=== PATIENT | female | born 1995 | race Caucasian/White ===

== ENCOUNTER 2016-08-18 13:00 | Emergency (ER) | payer OTHER ==
[2016-08-18 13:09] VITALS: BP 119/78; PULSE 76; RESP 17; O2SAT 98
--- NOTE | 2016-08-18 13:23 | EDPHY ---
H & P Stated Complaint: Fell and hit head last night. LOC. Vomiting Time Seen by Provider: 08/18/16 13:12 HPI/ROS: CHIEF COMPLAINT: Headache, vomiting following head injury last night HISTORY OF PRESENT ILLNESS: The patient presents to the ED complaining of headache and vomiting following a head injury last night. The patient was seen and reportedly at an emergency department in [place] where she was treated for alcohol intoxication. Patient reportedly did not have any imaging of her brain done last night. The patient reports throughout the day today she has had severe headache vomiting and severe pain in her frontal scalp. She was seen at an urgent care referred to the emergency department for further workup of possible closed head injury and concussion. The patient denies any associated neck pain, back pain, extremity pain, chest pain, difficulty breathing or abdominal pain. She is not on anticoagulants. Patient denies any recent infectious symptoms. She denies additional complaints. REVIEW OF SYSTEMS: A comprehensive 10 point review of systems is otherwise negative aside from elements mentioned in the history of present illness. Source: Patient Exam Limitations: No limitations - Personal History LMP (Females 10-55): 8-14 Days Ago Current Tetanus/Diphtheria Vaccine: Yes Current Tetanus Diphtheria and Acellular Pertussis (TDAP): Yes Tetanus Vaccine Date: WITHIN 10 YRS - Medical/Surgical History Hx Asthma: Yes Hx Chronic Respiratory Disease: No Hx Diabetes: No Hx Cardiac Disease: No Hx Renal Disease: No Hx Cirrhosis: No Hx Alcoholism: No Hx HIV/AIDS: No Hx Splenectomy or Spleen Trauma: No Other PMH: TONSILECTOMY , right ankle fx - Social History Smoking Status: Never smoked - Physical Exam Exam: General Appearance: Alert, no distress Head: Tenderness to palpation and soft tissue swelling noted in the left forehead, no palpable crepitus, no hematoma Eyes: Pupils equal, round, reactive ENT, Mouth: No hemotympanum, no oral trauma Neck: Nontender, trachea midline Respiratory: No chest wall tender, subcutaneous air, lungs clear bilaterally Cardiovascular: Regular rate and rhythm Abdomen: Abdomen is soft and nontender, pelvis stable Skin: No lacerations, No abrasion Back: No midline T/L/S pain Extremities: Nontender, full range of motion Neurological: A&Ox3, normal motor function, normal sensory exam, GCS 15 Constitutional: Initial Vital Signs Heart Rate 76 08/18/16 13:05 Respiratory Rate 17 08/18/16 13:05 Blood Pressure 119/78 08/18/16 13:05 O2 Sat (%) 98 08/18/16 13:05 O2 Delivery Mode Room Air Allergies/Adverse Reactions: No Known Allergies Allergy (Unverified 01/10/14 19:57) Home Medications: Medication Instructions Recorded Zoloft 100mg (RX) 01/10/14 Ondansetron Odt [Zofran Odt] 4 mg PO Q4PRN PRN #20 tab 08/18/16 Medical Decision Making - Diagnostics Imaging: CT head without contrast: Negative for intracranial hemorrhage, skull fracture or other acute finding. Images reviewed by myself and discussed with radiologist. ED Course/Re-evaluation: The patient presents the ED with symptoms of a severe concussion with headache, ongoing vomiting following a head injury last night. I detect no obvious focal neurologic deficits however given her history of trauma, ongoing vomiting and severe headache a noncontrast head CT scan was evaluated to exclude possible intracranial hemorrhage or skull fracture. CT scan results demonstrate no evidence of a intracranial hemorrhage or skull fracture. The patient is noted to have no additional traumatic injury on her clinical exam. The patient does present to the ED with a moderate concussion. She will be advised on typical aftercare instructions for concussions. She is given a concussion care instruction booklet and follow up with our on-call concussion specialist Dr. Arielle Harrington. Re-examined at 1:45 p.m.: GCS remains 15, no acute distress, 5/5 strength all 4 extremities. Informed of the results of CT scan. Aftercare instructions given and questions answered. Differential Diagnosis: Differential diagnosis considered includes intracranial hemorrhage, skull fracture, concussion Departure - Departure Disposition: Home, Routine, Self-Care Clinical Impression: Concussion Condition: Good Instructions: Concussion (ED) Additional Instructions: 1. Take Ibuprofen or Motrin 600 mg by mouth three times a day. 2. Zofran as needed for nausea 3. Concussion care as recommended in the concussion aftercare instruction book. 4. Please follow-up with your primary care provider as needed. 5. Please follow up with concussion specialist, Dr. Harrington, for any symptoms which persists past 7-10 days. Referrals: Yue Escobedo MD [Primary Care Provider] - As per Instructions Arielle Harrington MD [Medical Doctor] - As per Instructions Prescriptions: Ondansetron Odt [Zofran Odt] 4 mg PO Q4PRN PRN #20 tab PRN Reason: For Nausea
== END 2016-08-18 13:57 | disposition home or self-care (01) ==
DX: S06.0X0A Concussion without loss of consciousness, initial encounter (principal); J45.909 Unspecified asthma, uncomplicated; X58.XXXA Exposure to other specified factors, initial encounter